=== PATIENT | male | born 1985 | race Caucasian/White ===

== ENCOUNTER 2018-04-08 10:29 | Observation (INO) | payer OTHER ==
[2018-04-08] MEDS ORDERED: Sodium Chloride 0.9% 1000 ML 1,000 ML IV STA ×2 (10:41→11:43)
[2018-04-08] MEDS ORDERED: Ativan 2 MG/1 ML VIAL IV ONE ×2 (10:41→13:03)
--- NOTE | 2018-04-08 10:41 | ERPHSYRPT ---
- History of Present Illness Time Seen by Provider: 04/08/18 10:37 Source: EMS Exam Limitations: intoxication Physician History: The patient is a 32-year-old male brought in by ambulance for methamphetamine intoxication. Where he was staying the people called the ambulance because he was being very anxious. He told the ambulance crew that he's did methamphetamine about 45 minutes before they arrived. He now is not saying much to his. He is awake but states that we are pulling the air away from him. Timing/Duration: today, hour(s) (1), gradual onset, worse Severity: severe Modifying Factors: Improves With: nothing Associated Symptoms: other (anxiety) Allergies/Adverse Reactions: No Known Drug Allergies Allergy (Unverified 04/08/18 10:47) - Review of Systems Constitutional: No Fever, No Chills Eyes: No Symptoms Ears, Nose, & Throat: No Symptoms Respiratory: No Cough, No Dyspnea Cardiac: No Chest Pain, No Edema, No Syncope Abdominal/Gastrointestinal: No Abdominal Pain, No Nausea, No Vomiting, No Diarrhea Genitourinary Symptoms: No Dysuria Musculoskeletal: No Back Pain, No Neck Pain Skin: No Rash Neurological: No Dizziness, No Focal Weakness, No Sensory Changes Psychological: Drug Abuse Endocrine: No Symptoms Hematologic/Lymphatic: No Symptoms Immunological/Allergic: No Symptoms All Other Systems: Reviewed and Negative - Nursing Vital Signs Nursing Vital Signs: Initial Vital Signs Temperature 98.8 F 04/08/18 10:36 Pulse Rate 126 H 04/08/18 10:36 Respiratory Rate 24 04/08/18 10:36 Blood Pressure 138/97 04/08/18 10:36 O2 Sat by Pulse Oximetry 96 04/08/18 10:36 Pain Scale Pain Intensity 0 - Physical Exam General Appearance: moderate distress Eye Exam: PERRL/EOMI, eyes nml inspection Ears, Nose, Throat Exam: normal ENT inspection, TMs normal, pharynx normal, moist mucous membranes Neck Exam: normal inspection, non-tender, supple, full range of motion Respiratory Exam: normal breath sounds, lungs clear, No respiratory distress Cardiovascular Exam: tachycardia Gastrointestinal/Abdomen Exam: soft, normal bowel sounds, No tenderness, No mass Rectal Exam: not done Back Exam: normal inspection, normal range of motion, No CVA tenderness, No vertebral tenderness Extremity Exam: normal inspection, normal range of motion, pelvis stable Neurologic Exam: alert, disoriented, confusion, agitation, intoxicated appearance Skin Exam: normal color, warm, dry, other (pt is covered over most of body with tatoos), No rash Lymphatic Exam: No adenopathy SpO2 Interpretation: normal Oxygen Delivery: Room Air - Course EKG Interpreted by Me: RATE, Sinus Tach Ordered Tests: Active Orders 24 hr Category Date Time Status Clean Catch Urine Specimen STAT Care 04/08/18 10:41 Active EKG-ER Only STAT Care 04/08/18 10:41 Active IV Insertion STAT Care 04/08/18 10:41 Active ACETAMINOPHEN Stat Lab 04/08/18 10:35 Completed CBC W DIFF Stat Lab 04/08/18 10:35 Completed CMP Stat Lab 04/08/18 10:35 Completed ETHYL ALCOHOL Stat Lab 04/08/18 10:35 Completed SALICYLATE Stat Lab 04/08/18 10:35 Completed UA W/RFX UR CULTURE Stat Lab 04/08/18 13:10 Received Urine Triage Profile Stat Lab 04/08/18 13:10 Received Medication Summary Generic Name Dose Route Start Last Admin Trade Name Freq PRN Reason Stop Dose Admin Potassium Chloride 100 mls @ 50 mls/hr 04/08/18 12:53 04/08/18 13:04 Potassium Chloride 20 Meq In Water 100ml IV 04/08/18 14:52 50 mls/hr STAT ONE Administration Sodium Chloride 1,000 mls @ 100 mls/hr 04/08/18 13:30 04/08/18 13:28 Sodium Chloride 0.9% 1000 Ml IV 05/08/18 13:29 100 mls/hr .Q10H RUBIN Administration Discontinued Medications Generic Name Dose Route Start Last Admin Trade Name Freq PRN Reason Stop Dose Admin Sodium Chloride 1,000 mls @ 999 mls/hr 04/08/18 10:41 04/08/18 11:45 Sodium Chloride 0.9% 1000 Ml IV 04/08/18 11:41 Infused .Q1H1M STA Infusion Sodium Chloride Confirm 04/08/18 10:48 Sodium Chloride 0.9% 1000 Ml Administered 04/08/18 10:49 Dose 1,000 mls @ ud .ROUTE .STK-MED ONE Sodium Chloride 1,000 mls @ 999 mls/hr 04/08/18 11:43 04/08/18 11:44 Sodium Chloride 0.9% 1000 Ml IV 04/08/18 12:43 999 mls/hr .Q1H1M STA Administration Sodium Chloride Confirm 04/08/18 11:42 Sodium Chloride 0.9% 1000 Ml Administered 04/08/18 11:43 Dose 1,000 mls @ ud .ROUTE .STK-MED ONE Potassium Chloride Confirm 04/08/18 13:00 Potassium Chloride 20 Meq In Water 100ml Administered 04/08/18 13:01 Dose 100 mls @ ud IV .STK-MED ONE Lorazepam 2 mg 04/08/18 10:41 04/08/18 10:50 Ativan 2 Mg/1 Ml Vial IV 04/08/18 10:42 2 mg STAT ONE Administration Lorazepam Confirm 04/08/18 10:48 Ativan 2 Mg/1 Ml Vial Administered 04/08/18 10:49 Dose 2 mg .ROUTE .STK-MED ONE Lorazepam 2 mg 04/08/18 13:03 04/08/18 13:04 Ativan 2 Mg/1 Ml Vial IV 04/08/18 13:04 2 mg STAT ONE Administration Lorazepam Confirm 04/08/18 13:03 Ativan 2 Mg/1 Ml Vial Administered 04/08/18 13:04 Dose 2 mg .ROUTE .STK-MED ONE Lab/Rad Data: Laboratory Result Diagrams 04/08/18 10:35 04/08/18 10:35 Laboratory Results 04/08/18 04/08/18 Range/Units 10:35 10:35 WBC 11.7 H (4.0-10.5) K/mm3 RBC 4.66 (4.1-5.6) M/mm3 Hgb 15.4 (12.5-18.0) gm/dl Hct 45.2 (42-50) % MCV 97.0 (78-100) fl MCH 33.0 H (26-32) pg MCHC 34.1 (32-36) g/dl RDW 12.7 (11.5-14.0) % Plt Count 263 (150-450) K/mm3 MPV 10.6 H (6-9.5) fl Gran % 79.8 H (36.0-66.0) % Eos # (Auto) 0.06 (0-0.5) Absolute Lymphs (auto) 1.23 (1.0-4.6) Absolute Monos (auto) 1.06 (0.0-1.3) Lymphocytes % 10.5 L (24.0-44.0) % Monocytes % 9.0 (0.0-12.0) % Eosinophils % 0.5 (0.00-5.0) % Basophils % 0.2 (0.0-0.4) % Absolute Granulocytes 9.36 H (1.4-6.9) Basophils # 0.02 (0-0.4) Sodium 138 (137-145) mmol/L Potassium 3.2 L (3.5-5.1) mmol/L Chloride 99 (98-107) mmol/L Carbon Dioxide 23 (22-30) mmol/L Anion Gap 18.8 H (5-15) MEQ/L BUN 10 (9-20) mg/dL Creatinine 1.38 H (0.66-1.25) mg/dL Estimated GFR > 60.0 ML/MIN Glucose 150 H (74-106) mg/dL Calcium 10.0 (8.4-10.2) mg/dL Total Bilirubin 0.80 (0.2-1.3) mg/dL AST 30 (17-59) U/L ALT 36 (0-50) U/L Alkaline Phosphatase 117 (38-126) U/L Serum Total Protein 8.2 (6.3-8.2) g/dL Albumin 4.8 (3.5-5.0) g/dL Salicylates < 1.0 L (2-20) mg/dL Acetaminophen < 10 L (10-30) ug/ml Ethyl Alcohol < 10 (0-10) mg/dL - Progress Progress: improved Progress Note: 04/08/18 13:[address] Rey Matias who accepts pt to ICU. Discussed with : Shaun Matias Will see patient in: hospital (observation) Counseled pt/family regarding: drug and/or alcohol abuse, lab results, diagnosis - Departure Time of Disposition: 13:30 Departure Disposition: Observation (per Dr Rey Matias) Clinical Impression: Drug abuse, Hypokalemia Condition: Stable Critical Care Time: No
[2018-04-08] MEDS ORDERED: Sodium Chloride 0.9% 1000 ML 1,000 ML ONE ×2 (10:48→11:42)
[2018-04-08] MEDS ORDERED: Ativan 2 MG/1 ML VIAL ONE ×2 (10:48→13:03)
[2018-04-08 11:04] LABS: BASOPHIL % 0.2 % (0.0-0.4); Basophil (Absolute #) 0.02 (0-0.4); Eosinophil % 0.5 % (0.00-5.0); Eosinophil (Absolute #) 0.06 (0-0.5); Granulocyte Absolute (ANC) 9.36 (1.4-6.9); Granulocytes % 79.8 % (36.0-66.0); Hematocrit 45.2 % (42-50); Hemoglobin 15.4 gm/dl (12.5-18.0); Lymphocyte (Absolute #) 1.23 (1.0-4.6); Lymphocytes % 10.5 % (24.0-44.0); Mean Corpuscular Hgb Concent. 34.1 g/dl (32-36); Mean Platelet Volume 10.6 fl (6-9.5); Monocyte (Absolute #) 1.06 (0.0-1.3); Platelet Count 263 K/mm3 (150-450); Red Blood Count 4.66 M/mm3 (4.1-5.6); Red Cell Distribution Width 12.7 % (11.5-14.0); White Blood Count 11.7 K/mm3 (4.0-10.5)
[2018-04-08 11:16] LABS: ALBUMIN 4.8 g/dL (3.5-5.0); ALKALINE PHOSPHATASE 117 U/L (38-126); ANION GAP 18.8 MEQ/L (5-15); BLOOD UREA NITROGEN 10 mg/dL (9-20); CHLORIDE 99 mmol/L (98-107); Carbon Dioxide 23 mmol/L (22-30); Creatinine 1 1.38 mg/dL (0.66-1.25); Glucose 150 mg/dL (74-106); Potassium 3.2 mmol/L (3.5-5.1); SGOT/AST 30 U/L (17-59); SGPT/ALT 36 U/L (0-50); SODIUM 138 mmol/L (137-145); Total Protein 8.2 g/dL (6.3-8.2)
[2018-04-08 11:18] LABS: ACETAMINOPHEN < 10 ug/ml (10-30); ETHYL ALCOHOL < 10 mg/dL (0-10); SALICYLATE < 1.0 mg/dL (2-20)
[2018-04-08] MEDS ORDERED: POTASSIUM CHLORIDE 20 mEq IN WATER 100ML 100 ML IV ONE ×2 (12:53→13:00)
[2018-04-08 13:29] LABS: Appearance SLIGHTLY CLOUDY (CLEAR); Bilirubin NEGATIVE (NEGATIVE); Blood NEGATIVE Ery/ul (0-5); Glucose NEGATIVE (NEGATIVE); Ketones NEGATIVE (NEGATIVE); Leukocyte Esterase NEGATIVE (NEGATIVE); Nitrite NEGATIVE (NEGATIVE); Protein,Urine Dip NEGATIVE (Negative); Specific Gravity 1.011 (1.005-1.025); Urobilinogen NEGATIVE mg/dL (0-1)
[2018-04-08] MEDS ORDERED: Sodium Chloride 0.9% 1000 ML 1,000 ML IV SCH (13:30)
[2018-04-08 13:37] LABS: Barbiturate,Urine NEGATIVE (NEGATIVE); Benzodiazepine,Urine NEGATIVE (NEGATIVE); Cocaine,Urine NEGATIVE (NEGATIVE); Methadone,Urine NEGATIVE (NEGATIVE); PCP,Urine NEGATIVE (NEGATIVE); THC,Urine NEGATIVE (NEGATIVE)
[2018-04-08 13:58] LABS: Amphetamine,Urine POSITIVE (NEGATIVE); Opiate,Urine NEGATIVE (NEGATIVE)
[2018-04-08] MEDS ORDERED: TYLENOL 325 MG PO PRN (14:20)
[2018-04-08] MEDS ORDERED: Zofran 4 MG/2 ML VIAL IV PRN (14:20)
[2018-04-08] MEDS: Sodium Chloride 0.9% 1000 ML 1,000 ML IV SCH (22:46)
[2018-04-08] MEDS: Ativan 2 MG/1 ML VIAL IV PRN (23:56)
[2018-04-09] MEDS: Ativan 2 MG/1 ML VIAL IV PRN ×5 (01:54→17:40)
[2018-04-09] MEDS ORDERED: Nicoderm CQ 21 MG TOP SCH ×2 (02:20→22:00)
[2018-04-09 04:24] VITALS: O2SAT 95
[2018-04-09 05:53] LABS: BASOPHIL % 0.3 % (0.0-0.4); Basophil (Absolute #) 0.03 (0-0.4); Eosinophil % 2.2 % (0.00-5.0); Eosinophil (Absolute #) 0.22 (0-0.5); Granulocyte Absolute (ANC) 6.97 (1.4-6.9); Granulocytes % 70.7 % (36.0-66.0); Hematocrit 39.2 % (42-50); Hemoglobin 12.9 gm/dl (12.5-18.0); Lymphocytes % 16.2 % (24.0-44.0); Mean Corpuscular Hemoglobin 32.9 pg (26-32); Mean Corpuscular Hgb Concent. 32.9 g/dl (32-36); Mean Platelet Volume 10.4 fl (6-9.5); Monocyte (Absolute #) 1.05 (0.0-1.3); Monocytes % 10.6 % (0.0-12.0); Platelet Count 200 K/mm3 (150-450); Red Blood Count 3.92 M/mm3 (4.1-5.6); Red Cell Distribution Width 12.8 % (11.5-14.0); White Blood Count 9.9 K/mm3 (4.0-10.5)
[2018-04-09 06:13] LABS: ANION GAP 8.1 MEQ/L (5-15); BLOOD UREA NITROGEN 6 mg/dL (9-20); CHLORIDE 109 mmol/L (98-107); Calcium 8.4 mg/dL (8.4-10.2); Carbon Dioxide 26 mmol/L (22-30); Creatinine 1 0.99 mg/dL (0.66-1.25); Glucose 101 mg/dL (74-106); SODIUM 139 mmol/L (137-145)
[2018-04-09] MEDS: Sodium Chloride 0.9% 1000 ML 1,000 ML IV SCH (08:45)
[2018-04-09 12:05] VITALS: BP 117/74
--- NOTE | 2018-04-09 12:19 | PCM.HP ---
History of Present Illness - Chief Complaint Chief Complaint: severe anxiety for 2-3 days History of Present Illness: is a 32 year old male. brought in by ambulance for methamphetamine intoxication. Where he was staying the people called the ambulance because he was being very anxious. He told the ambulance crew that he's did methamphetamine about 45 minutes before they arrived. He now is not saying much to his. He is awake but states that we are pulling the air away from him. Timing/Duration: today, hour(s) (1), gradual onset, worse - Review of Systems Constitutional: No Fever, No Chills Eyes: No Symptoms Ears, Nose, & Throat: No Symptoms Respiratory: No Cough, No Short Of Breath Cardiac: No Chest Pain, No Edema, No Syncope Abdominal/Gastrointestinal: No Abdominal Pain, No Nausea, No Vomiting, No Diarrhea Genitourinary Symptoms: No Dysuria Musculoskeletal: No Back Pain, No Neck Pain Skin: No Rash Neurological: No Dizziness, No Focal Weakness, No Sensory Changes Psychological: Anxiety Endocrine: No Symptoms Hematologic/Lymphatic: No Symptoms Immunological/Allergic: No Symptoms Medications & Allergies Home Medications: Home Medication List No Reportable Medications [No Reported Medications] 04/08/18 [History Confirmed 04/08/18] Allergies/Adverse Reactions: Allergies Allergy/AdvReac Type Severity Reaction Status Date / Time No Known Drug Allergies Allergy Unverified 04/08/18 14:24 - Past Medical History Past Medical History: No (Unknown) Comment: Mother says she doesn't know of any medical illnesses. - Past Surgical History Past Surgical History: No (Unknown) Other Surgical History: Mother says she doesn't know of any surgeries. - Social History Smoking Status: Current every day smoker Exposure to second hand smoke: (unknown) Drug Use: methamphetamines - Physical Exam Vital Signs: Vital Signs - 24 hr Temp Pulse Resp BP Pulse Ox 04/09/18 12:00 98 F 100 H 20 117/74 04/09/18 08:00 97.9 F 96 H 17 110/69 95 04/09/18 04:00 98.2 F 97 H 17 111/69 95 04/09/18 00:01 96 H 04/09/18 00:00 97.8 F 96 H 18 137/91 98 04/08/18 20:00 87 122/84 98 04/08/18 19:40 79 04/08/18 14:35 97.5 F 93 H 19 117/74 20 L 04/08/18 13:37 97.6 F 80 16 142/86 99 04/08/18 12:47 94 H 16 120/82 96 Oxygen-Last 24 hours Oxygen Flowrate (L/min)-RT 96 General Appearance: no apparent distress, alert Neurologic Exam: alert, oriented x 3, cooperative, normal mood/affect, nml cerebellar function, nml station & gait, sensation nml, No motor deficits Eye Exam: PERRL/EOMI, eyes nml inspection Ears, Nose, Throat Exam: normal ENT inspection, TMs normal, pharynx normal, moist mucous membranes Neck Exam: normal inspection, non-tender, supple, full range of motion Respiratory Exam: normal breath sounds, lungs clear, No respiratory distress Cardiovascular Exam: regular rate/rhythm, normal heart sounds, normal peripheral pulses Gastrointestinal/Abdomen Exam: soft, normal bowel sounds, No tenderness, No mass Back Exam: normal inspection, normal range of motion, No CVA tenderness, No vertebral tenderness Extremity Exam: normal inspection, normal range of motion, pelvis stable Skin Exam: normal color, warm, dry, No rash Lymphatic Exam: No adenopathy Results - Labs Lab/Micro Results: Lab Results-Last 24 Hours 04/08/18 04/08/18 04/08/18 Range/Units 13:10 13:10 17:57 WBC (4.0-10.5) K/mm3 RBC (4.1-5.6) M/mm3 Hgb (12.5-18.0) gm/dl Hct (42-50) % MCV (78-100) fl MCH (26-32) pg MCHC (32-36) g/dl RDW (11.5-14.0) % Plt Count (150-450) K/mm3 MPV (6-9.5) fl Gran % (36.0-66.0) % Eos # (Auto) (0-0.5) Absolute Lymphs (auto) (1.0-4.6) Absolute Monos (auto) (0.0-1.3) Lymphocytes % (24.0-44.0) % Monocytes % (0.0-12.0) % Eosinophils % (0.00-5.0) % Basophils % (0.0-0.4) % Absolute Granulocytes (1.4-6.9) Basophils # (0-0.4) Sodium (137-145) mmol/L Potassium 4.2 D (3.5-5.1) mmol/L Chloride (98-107) mmol/L Carbon Dioxide (22-30) mmol/L Anion Gap (5-15) MEQ/L BUN (9-20) mg/dL Creatinine (0.66-1.25) mg/dL Estimated GFR ML/MIN Glucose (74-106) mg/dL Calcium (8.4-10.2) mg/dL Urine Color YELLOW (YELLOW) Urine Appearance SLIGHTLY CLOUDY (CLEAR) Urine pH 6.0 (5-6) Ur Specific [place] 1.011 (1.005-1.025) Urine Protein NEGATIVE (Negative) Urine Ketones NEGATIVE (NEGATIVE) Urine Blood NEGATIVE (0-5) Marco/ul Urine Nitrite NEGATIVE (NEGATIVE) Urine Bilirubin NEGATIVE (NEGATIVE) Urine Urobilinogen NEGATIVE (0-1) mg/dL Ur Leukocyte Esterase NEGATIVE (NEGATIVE) Urine WBC (Auto) 3-5 (0-5) /HPF Urine RBC (Auto) 0-2 (0-2) /HPF U Hyaline Cast (Auto) 3-5 (0-2) /LPF U Epithel Cells (Auto) NONE (FEW) /HPF Urine Bacteria (Auto) NONE (NEGATIVE) /HPF Urine Mucus (Auto) SLIGHT (NEGATIVE) /HPF Urine Culture Reflexed NO (NO) Urine Glucose NEGATIVE (NEGATIVE) mg/dL Urine Opiates Level NEGATIVE (NEGATIVE) Ur Methadone NEGATIVE (NEGATIVE) Urine Barbiturates NEGATIVE (NEGATIVE) Ur Phencyclidine (PCP) NEGATIVE (NEGATIVE) Urine Amphetamine POSITIVE (NEGATIVE) U Benzodiazepine Level NEGATIVE (NEGATIVE) Urine Cocaine NEGATIVE (NEGATIVE) Urine Marijuana (THC) NEGATIVE (NEGATIVE) 04/09/18 04/09/18 Range/Units 05:35 05:35 WBC 9.9 (4.0-10.5) K/mm3 RBC 3.92 L (4.1-5.6) M/mm3 Hgb 12.9 (12.5-18.0) gm/dl Hct 39.2 L (42-50) % MCV 100.0 (78-100) fl MCH 32.9 H (26-32) pg MCHC 32.9 (32-36) g/dl RDW 12.8 (11.5-14.0) % Plt Count 200 (150-450) K/mm3 MPV 10.4 H (6-9.5) fl Gran % 70.7 H (36.0-66.0) % Eos # (Auto) 0.22 (0-0.5) Absolute Lymphs (auto) 1.60 (1.0-4.6) Absolute Monos (auto) 1.05 (0.0-1.3) Lymphocytes % 16.2 L (24.0-44.0) % Monocytes % 10.6 (0.0-12.0) % Eosinophils % 2.2 (0.00-5.0) % Basophils % 0.3 (0.0-0.4) % Absolute Granulocytes 6.97 H (1.4-6.9) Basophils # 0.03 (0-0.4) Sodium 139 (137-145) mmol/L Potassium 4.0 (3.5-5.1) mmol/L Chloride 109 H (98-107) mmol/L Carbon Dioxide 26 (22-30) mmol/L Anion Gap 8.1 (5-15) MEQ/L BUN 6 L (9-20) mg/dL Creatinine 0.99 (0.66-1.25) mg/dL Estimated GFR > 60.0 ML/MIN Glucose 101 (74-106) mg/dL Calcium 8.4 D (8.4-10.2) mg/dL Urine Color (YELLOW) Urine Appearance (CLEAR) Urine pH (5-6) Ur Specific [place] (1.005-1.025) Urine Protein (Negative) Urine Ketones (NEGATIVE) Urine Blood (0-5) Marco/ul Urine Nitrite (NEGATIVE) Urine Bilirubin (NEGATIVE) Urine Urobilinogen (0-1) mg/dL Ur Leukocyte Esterase (NEGATIVE) Urine WBC (Auto) (0-5) /HPF Urine RBC (Auto) (0-2) /HPF U Hyaline Cast (Auto) (0-2) /LPF U Epithel Cells (Auto) (FEW) /HPF Urine Bacteria (Auto) (NEGATIVE) /HPF Urine Mucus (Auto) (NEGATIVE) /HPF Urine Culture Reflexed (NO) Urine Glucose (NEGATIVE) mg/dL Urine Opiates Level (NEGATIVE) Ur Methadone (NEGATIVE) Urine Barbiturates (NEGATIVE) Ur Phencyclidine (PCP) (NEGATIVE) Urine Amphetamine (NEGATIVE) U Benzodiazepine Level (NEGATIVE) Urine Cocaine (NEGATIVE) Urine Marijuana (THC) (NEGATIVE) Assessment/Plan (1) Methamphetamine abuse Current Visit: Yes Status: Acute Assessment & Plan: Last Vital Signs Temp 98 F 04/09/18 12:00 Pulse 100 H 04/09/18 12:00 Resp 20 04/09/18 12:00 BP 117/74 04/09/18 12:00 Pulse Ox 95 04/09/18 08:00 Allergies No Known Drug Allergies Allergy (Unverified 04/08/18 14:24) Active Medications Acetaminophen (Tylenol 325 Mg) 650 mg PO Q4H PRN PRN PRN Reason: PAIN AND/OR FEVER Stop: 05/08/18 14:19 Sodium Chloride (Sodium Chloride 0.9% 1000 Ml) 1,000 mls @ 100 mls/hr IV .Q10H [facility] Stop: 05/08/18 14:19 Last Admin: 04/09/18 08:45 Dose: 100 mls/hr Lorazepam (Ativan 2 Mg/1 Ml Vial) 2 mg IV Q2H PRN PRN PRN Reason: AGITATION Stop: 05/08/18 14:19 Last Admin: 04/09/18 11:18 Dose: 2 mg Nicotine (Nicoderm Cq 21 Mg) 21 mg TOP Q24H22 [facility] Stop: 05/09/18 21:59 Ondansetron HCl (Zofran 4 Mg/2 Ml Vial) 4 mg IV Q6H PRN PRN PRN Reason: NAUSEA/VOMITING Stop: 05/08/18 14:19 Intake & Output 04/09/18 04/10/18 11:59 11:59 Intake Total 2831 Output Total 400 Balance 2431 Weight 89.4 kg Lab Tests 04/08/18 04/08/18 04/08/18 13:10 13:10 17:57 WBC RBC Hgb Hct MCV MCH MCHC RDW Plt Count MPV Gran % Eos # (Auto) Absolute Lymphs (auto) Absolute Monos (auto) Lymphocytes % Monocytes % Eosinophils % Basophils % Absolute Granulocytes Basophils # Sodium Potassium 4.2 D Chloride Carbon Dioxide Anion Gap BUN Creatinine Estimated GFR Glucose Calcium Urine Color YELLOW Urine Appearance SLIGHTLY CLOUDY Urine pH 6.0 Ur Specific [place] 1.011 Urine Protein NEGATIVE Urine Ketones NEGATIVE Urine Blood NEGATIVE Urine Nitrite NEGATIVE Urine Bilirubin NEGATIVE Urine Urobilinogen NEGATIVE Ur Leukocyte Esterase NEGATIVE Urine WBC (Auto) 3-5 Urine RBC (Auto) 0-2 U Hyaline Cast (Auto) 3-5 U Epithel Cells (Auto) NONE Urine Bacteria (Auto) NONE Urine Mucus (Auto) SLIGHT Urine Culture Reflexed NO Urine Glucose NEGATIVE Urine Opiates Level NEGATIVE Ur Methadone NEGATIVE Urine Barbiturates NEGATIVE Ur Phencyclidine (PCP) NEGATIVE Urine Amphetamine POSITIVE U Benzodiazepine Level NEGATIVE Urine Cocaine NEGATIVE Urine Marijuana (THC) NEGATIVE 04/09/18 04/09/18 05:35 05:35 WBC 9.9 RBC 3.92 L Hgb 12.9 Hct 39.2 L MCV 100.0 MCH 32.9 H MCHC 32.9 RDW 12.8 Plt Count 200 MPV 10.4 H Gran % 70.7 H Eos # (Auto) 0.22 Absolute Lymphs (auto) 1.60 Absolute Monos (auto) 1.05 Lymphocytes % 16.2 L Monocytes % 10.6 Eosinophils % 2.2 Basophils % 0.3 Absolute Granulocytes 6.97 H Basophils # 0.03 Sodium 139 Potassium 4.0 Chloride 109 H Carbon Dioxide 26 Anion Gap 8.1 BUN 6 L Creatinine 0.99 Estimated GFR > 60.0 Glucose 101 Calcium 8.4 D Urine Color Urine Appearance Urine pH Ur Specific [place] Urine Protein Urine Ketones Urine Blood Urine Nitrite Urine Bilirubin Urine Urobilinogen Ur Leukocyte Esterase Urine WBC (Auto) Urine RBC (Auto) U Hyaline Cast (Auto) U Epithel Cells (Auto) Urine Bacteria (Auto) Urine Mucus (Auto) Urine Culture Reflexed Urine Glucose Urine Opiates Level Ur Methadone Urine Barbiturates Ur Phencyclidine (PCP) Urine Amphetamine U Benzodiazepine Level Urine Cocaine Urine Marijuana (THC) Code(s): F15.10 - OTHER STIMULANT ABUSE, UNCOMPLICATED (2) Drug abuse Current Visit: Yes Status: Acute Onset Date: ~04/09/18 Code(s): F19.10 - OTHER PSYCHOACTIVE SUBSTANCE ABUSE, UNCOMPLICATED (3) Hypokalemia Current Visit: Yes Status: Acute Onset Date: ~04/09/18 Code(s): E87.6 - HYPOKALEMIA
[2018-04-09 12:20] VITALS: PULSE 114
[2018-04-09] MEDS ORDERED: Sodium Chloride 0.9% 1000 ML 1,000 ML IV STA (13:10)
[2018-04-09] MEDS ORDERED: Sodium Chloride 0.9% 1000 ML 1,000 ML IV SCH (13:15)
[2018-04-09] MEDS ORDERED: TORAdol 30 mg Injection IV SCH ×2 (13:15→14:00)
--- NOTE | 2018-04-09 13:49 | XRAY ---
Indication: Pain with inspiration. Left axilla pain. Comparison: None PA/lateral chest demonstrates normal heart, lungs, and bony thorax.
== END 2018-04-09 18:35 ==
LOC: ED 10:29 → ICU 14:18
PROVIDERS: ADMIT General Practice; ATTEND General Practice
DX: F15.10 Other stimulant abuse, uncomplicated (principal); E87.6 Hypokalemia; R45.850 Homicidal ideations; R44.3 Hallucinations, unspecified
CPT/HCPCS: 36000; 36415; 71046; 80048; 80053; 80307; 81001; 84132; 85025; 90791; 93005; 93268; 96360; 96361; 96365; 96367; 96374; 96375; 96376; 99285; G0481; J1885; J2060; J2405; J3480; Q3014; A9270-GY; G0378; G0480